=== PATIENT | female | born 1975 | race American Indian/Alaskan Native ===

== ENCOUNTER 2021-06-04 10:50 | Emergency (ER) | payer SELFPAY ==
[2021-06-04 11:07] VITALS: BP 167/87
--- NOTE | 2021-06-04 11:54 | Emergency Department Report ---
HPI - General Chief Complaint: Urogenital-Female Time Seen by Provider: 06/04/21 11:47 - HPI HPI: Room 6 The patient is a 46-year-old female present with a chief complaint of tampon stuck in vaginal canal. The patient states she placed a tampon yesterday and forgot about it when she had sexual intercourse. Patient states she now is unable to get the tampon out. Patient otherwise denies having any complaints ED Past Medical Hx - Past Medical History Previous Medical History?: No - Surgical History Past Surgical History?: Yes Additional Surgical History: "left hand surgery" - Family History Family history: no significant - Social History Smoking Status: Current Some Day Smoker (Hookah) Substance Use Type: None (Denies illicit drug use), Alcohol (Occasionally) - Medications Home Medications: Home Medications Medication Instructions Recorded Confirmed Last Taken Type Fluticasone Propionate [Flonase] 200 mcg NS QDAY #1 spray 03/13/14 Unknown Rx HYDROcodone/APAP 7.5-325 [[place] 1 each PO Q6HR PRN #14 tablet 03/13/14 Unknown Rx 7.5-325 mg TAB] Ibuprofen [Motrin] 800 mg PO Q8H PRN #20 tablet 03/13/14 Unknown Rx Sulfamethoxazole/Trimethoprim 1 each PO BID #20 tablet 03/13/14 Unknown Rx [Bactrim Ds] Acetaminophen/Codeine 1 tab PO Q6H PRN #15 tab 10/16/14 Unknown Rx [Acetaminophen-Codeine #3 TAB] Diclofenac Dr [Voltaren Dr] 75 mg PO TID #21 tablet 10/16/14 Unknown Rx methOCARBAMOL [Robaxin] 500 mg PO Q6H PRN #20 tablet 10/16/14 Unknown Rx ED Review of Systems ROS: Stated complaint: TAMPON REMOVAL Other details as noted in HPI Constitutional: no symptoms reported Eyes: denies: eye pain ENT: denies: throat pain Respiratory: no symptoms reported Cardiovascular: denies: chest pain Endocrine: no symptoms reported Gastrointestinal: denies: abdominal pain Genitourinary: denies: dysuria Musculoskeletal: denies: back pain Neurological: denies: headache Physical Exam - Physical Exam Vital Signs: Vital Signs 06/04/21 11:03 Temperature 98.8 F Pulse Rate 75 Respiratory 20 Rate Blood Pressure 167/87 O2 Sat by Pulse 98 Oximetry Physical Exam: GENERAL: The patient is well-developed well-nourished female sitting on stretcher not appearing to be in acute distress. [] HEENT: Normocephalic. Atraumatic. Extraocular motions are intact. Patient has moist mucous membranes. NECK: Supple. Trachea midline CHEST/LUNGS: There is no respiratory distress noted. ABDOMEN: There is no abdominal distention. SKIN: There is no rash. There is no edema. There is no diaphoresis. NEURO: The patient is awake, alert, and oriented. The patient is cooperative. The patient has no focal neurologic deficits. The patient has normal speech. GCS 15 MUSCULOSKELETAL:There is no evidence of acute injury. PELVIC: Tampon visualized left lateral to the cervix, removed easily with forceps ED Course Vital Signs 06/04/21 11:03 Temperature 98.8 F Pulse Rate 75 Respiratory 20 Rate Blood Pressure 167/87 O2 Sat by Pulse 98 Oximetry ED Medical Decision Making - Differential Diagnosis Foreign body vagina Critical care attestation.: If time is entered above; I have spent that time in minutes in the direct care of this critically ill patient, excluding procedure time. ED Disposition Clinical Impression: Foreign body in vagina Disposition: DC-01 TO HOME OR SELFCARE Is pt being admited?: No Does the pt Need Aspirin: No Condition: Stable Instructions: Vaginal Foreign Body Additional Instructions: Return to the emergency department should you develop worsening symptoms, inability to tolerate food or liquids, high fever or any other concerns Referrals: [facility] [Provider Group] - 3-5 Days Time of Disposition: 12:11
== END 2021-06-04 12:19 | disposition home or self-care (01) ==
LOC: ED 10:50
DX: T19.2XXA Foreign body in vulva and vagina, initial encounter (principal); F17.200 Nicotine dependence, unspecified, uncomplicated; Z98.890 Other specified postprocedural states; Z79.899 Other long term (current) drug therapy; X58.XXXA Exposure to other specified factors, initial encounter; Y92.89 Other specified places as the place of occurrence of the external cause; Y93.89 Activity, other specified; Y99.8 Other external cause status
CPT/HCPCS: 99281